=== PATIENT | male | born 1935 | race Hispanic/Latino ===

== ENCOUNTER → 2018-04-29 | Outpatient (CLI) | payer OTHER | END | disposition home or self-care (01) | LOC: SHCH 10:16 | PROVIDERS: ATTEND Internal Medicine Cardiovascular Disease | DX: R01.1 Cardiac murmur, unspecified (principal); Z79.01 Long term (current) use of anticoagulants | CPT/HCPCS: 93880 ==

== ENCOUNTER → 2018-05-02 | Outpatient (CLI) | payer OTHER | END | disposition home or self-care (01) | LOC: SHCH 13:52 | PROVIDERS: ATTEND Internal Medicine Cardiovascular Disease | DX: I34.0 Nonrheumatic mitral (valve) insufficiency (principal); I10 Essential (primary) hypertension; I25.10 Atherosclerotic heart disease of native coronary artery without angina pectoris | CPT/HCPCS: 93306 ==

== ENCOUNTER → 2018-05-27 | Outpatient (CLI) | payer OTHER ==
[2018-05-27 14:20] LABS: CREATININE 1.3 mg/dL (0.5-1.5)
== END | disposition home or self-care (01) ==
LOC: LAB 13:30
PROVIDERS: ATTEND Internal Medicine Cardiovascular Disease
DX: I65.23 Occlusion and stenosis of bilateral carotid arteries (principal)
CPT/HCPCS: 36415; 82565; 84520

== ENCOUNTER → 2018-05-29 | Outpatient (CLI) | payer OTHER ==
[~2018-05-29] MED LIST: IOHEXOL-350 50ML VIAL IV ONE
== END | disposition home or self-care (01) ==
LOC: OIH 08:02
PROVIDERS: ATTEND Internal Medicine Cardiovascular Disease
DX: I65.23 Occlusion and stenosis of bilateral carotid arteries (principal); I70.90 Unspecified atherosclerosis
CPT/HCPCS: 70498; Q9967

== ENCOUNTER 2018-08-16 09:44 | Day surgery (SDC) | payer OTHER ==
[2018-08-14 09:30] LABS: EOSINOPHILS % (AUTO) 6.8 % (0.0-8.0); HEMATOCRIT 43.8 % (42-54); LYMPHOCYTES % (AUTO) 21.1 % (21.0-51.0); MEAN CORPUSCULAR HEMOGLOBIN 33.2 pg (27.0-33.0); MEAN CORPUSCULAR HGB CONC 33.6 g/dL (32.0-36.0); MEAN CORPUSCULAR VOLUME 99.1 fL (79-99); MONOCYTES % (AUTO) 9.7 % (3.0-13.0); NEUTROPHILS % (AUTO) 61.4 % (40.0-77.0); PLATELET COUNT (AUTO) 153 K/uL (130-400); RED BLOOD CELL COUNT(AUTO) 4.42 MIL/uL (4.50-6.20); RED CELL DISTRIBUTION WIDTH 14.8 % (11.0-15.5); WHITE BLOOD COUNT (AUTO) 8.5 K/uL (4.8-10.8)
[2018-08-14 09:34] VITALS: BP 91/51
[2018-08-14 09:35] LABS: APPEARANCE,URINE Clear (CLEAR); BILIRUBIN,URINE Negative (NEGATIVE); COLOR,URINE Yellow (YELLOW); GLUCOSE, URINE (UA) Negative (NEGATIVE); KETONES,URINE Trace mg/dL (NEGATIVE); LEUKOCYTE ESTERASE ,URINE Negative (NEGATIVE); NITRATE,URINE Negative (NEGATIVE); OCCULT BLOOD,URINE Negative (NEGATIVE); PH,URINE 5.5 (5.0-8.0); PROTEIN,URINE Negative (NEGATIVE)
[2018-08-14 09:38] LABS: CREATININE 1.5 mg/dL (0.5-1.5); POTASSIUM 3.9 mmol/L (3.5-5.1)
[2018-08-14 10:13] LABS: INR 1.04 (0.85-1.15); PROTHROMBIN TIME 10.9 SEC (9.6-11.6)
[2018-08-14 10:18] LABS: BACTERIA,URINE Rare /HPF (None Seen); RBC,URINE 0-1 /HPF (0-1); SQUAMOUS EPITHELIAL CELL,UR Rare /HPF (0-2)
--- NOTE | 2018-08-15 10:36 | NUR ---
ABNORMAL LABS REPORTED CREATININE 1.5 TO SHERICE PATEL. ORDERS TO GIVE NS AT 100 ML/HR UNTIL PT GOES TO PROCEDURE. AND PER KWAN, TO BRING PT IN AT 1000 DAY OF PROCEDURE.
[~2018-08-16] VITALS: Ht 165.1 cm; Wt 73.1 kg
[2018-08-16] VITALS (13 sets, daily range): BP systolic 102–121; BP diastolic 44–57
[~2018-08-16 09:44] MED LIST changes: +APIX2.5T PO; +ATOR20TA65 PO; +CARV6.25 PO; +DIGO125T17 PO; +FURO20TA4 PO; -IOHEXOL-350 50ML VIAL IV ONE; +LISI2.5T2 PO; +SODIUM CHLORIDE 0.9% 500ML 500 ML IV SCH
--- NOTE | 2018-08-16 09:56 | NUR ---
Pt admit to day room 7 Pt admit ambulatory to day room 7. Pt aware of planned procedure. Allergies verified. Assessment completed. Pt aware of hydration status due to creatine of 1.5. All questions answered. No distress noted. will continue to monitor.
[2018-08-16] MEDS ORDERED: SODIUM CHLORIDE 0.9% 1000ML 1,000 ML IV SCH ×2 (10:00→14:47)
[2018-08-16] MEDS ORDERED: LIDOCAINE HCL-MPF 2% 5ML VIAL ONE (13:31)
[2018-08-16] MEDS ORDERED: IODIXANOL 320 MG/ML 100 ML VIAL ONE (13:31)
[2018-08-16] MEDS ORDERED: NITROGLYCERIN 5 MG/ML 10 ML VIAL IV ONE (13:31)
[2018-08-16] MEDS ORDERED: SODIUM BICARB 50MEQ 50ML VIAL ONE (13:31)
--- NOTE | 2018-08-16 13:40 | NUR ---
PT in route to [employer] Pt aware of planned procedure. Pt in route with [facility]asma DAHL to [employer]
--- NOTE | 2018-08-16 15:03 | NUR ---
pt s/p cardiac cath lab manager Pt returned s/p cardiac cath lab manager to day room 7. PT AAOX3, perclose to right groin, dressing dry and intact. Family at bedside. Assessment completed. No distress noted. Will continue to monitor.
--- NOTE | 2018-08-16 19:16 | NUR ---
DC Home PT continues AAOX3, perclose to right groin continues dry and intact. Discharge instructions given to pt, spouse and family. Aware of f/u appt with MD Smith 09/02/18. Pt and spouse aware of Eliquis is to be continued tomorrow in evening on 08/17/18. All questions answered. Dc via wheelchair.
== END 2018-08-16 19:16 | disposition home or self-care (01) ==
LOC: DAH 09:44
PROVIDERS: ATTEND Internal Medicine Cardiovascular Disease
DX: I65.23 Occlusion and stenosis of bilateral carotid arteries (principal); I25.10 Atherosclerotic heart disease of native coronary artery without angina pectoris; Z95.1 Presence of aortocoronary bypass graft; Z79.899 Other long term (current) drug therapy; I10 Essential (primary) hypertension; E78.5 Hyperlipidemia, unspecified; I48.0 Paroxysmal atrial fibrillation; Z79.01 Long term (current) use of anticoagulants; I25.5 Ischemic cardiomyopathy; I73.9 Peripheral vascular disease, unspecified
CPT/HCPCS: 36223; 36415; 71045; 80048; 81001; 85025; 85610; 85730; 93005; A4606; C1760; C1894; J1644; J3490 ×3; Q9967

== ENCOUNTER 2018-10-07 10:00 | Inpatient (IN) | payer OTHER ==
[~2018-10-07] VITALS: Ht 172.7 cm; Wt 75.7 kg
[~2018-10-07 10:00] MED LIST changes: -DIGO125T17 PO; -SODIUM CHLORIDE 0.9% 500ML 500 ML IV SCH
[2018-10-07 11:47] VITALS: BP 103/54
[2018-10-07 11:52] LABS: EOSINOPHILS % (AUTO) 8.6 % (0.0-8.0); HEMATOCRIT 42.5 % (42-54); MEAN CORPUSCULAR HEMOGLOBIN 32.3 pg (27.0-33.0); MEAN CORPUSCULAR VOLUME 97.8 fL (79-99); NEUTROPHILS % (AUTO) 61.4 % (40.0-77.0); PLATELET COUNT (AUTO) 161 K/uL (130-400); RED BLOOD CELL COUNT(AUTO) 4.35 MIL/uL (4.50-6.20); RED CELL DISTRIBUTION WIDTH 14.3 % (11.0-15.5); WHITE BLOOD COUNT (AUTO) 9.5 K/uL (4.8-10.8)
[2018-10-07 11:53] LABS: APPEARANCE,URINE CLEAR (CLEAR); BILIRUBIN,URINE NEGATIVE (NEGATIVE); COLOR,URINE YELLOW (YELLOW); GLUCOSE, URINE (UA) NEGATIVE (NEGATIVE); KETONES,URINE NEGATIVE (NEGATIVE); LEUKOCYTE ESTERASE ,URINE NEGATIVE (NEGATIVE); NITRATE,URINE NEGATIVE (NEGATIVE); OCCULT BLOOD,URINE NEGATIVE (NEGATIVE); PROTEIN,URINE NEGATIVE (NEGATIVE)
[2018-10-07 12:06] LABS: CREATININE 1.4 mg/dL (0.5-1.5); INR 1.04 (0.85-1.15); PARTIAL THROMBOPLASTIN TIME 29.9 SEC (26.3-35.5); PROTHROMBIN TIME 10.9 SEC (9.6-11.6)
[2018-10-07] MEDS ORDERED: DIGOXIN PO (12:54)
[2018-10-07] MEDS ORDERED: CLOP75TA32 PO (12:55)
--- NOTE | 2018-10-08 12:05 | NUR ---
Cr 1.[address] Isael Smith, no new orders
[2018-10-09] VITALS (21 sets, daily range): BP systolic 112–166; BP diastolic 43–112
[2018-10-09] MEDS ORDERED: LIDOCAINE HCL 1% 10 ML VIAL ONE (06:27)
[2018-10-09] MEDS ORDERED: PROPOFOL 10 MG/ML 20ML VIAL IV ONE ×2 (06:27→06:30)
[2018-10-09] MEDS ORDERED: LIDOCAINE PF 2% 5ML ABBOJECT ONE (06:27)
[2018-10-09] MEDS ORDERED: FENTANYL CITRATE PF 50 MCG/1 ML 2ML VIAL ONE ×2 (06:28→07:54)
[2018-10-09] MEDS ORDERED: ROCURONIUM 10MG/1ML SYR 10 MG/ML ML ONE (06:28)
[2018-10-09] MEDS ORDERED: GLYCOPYRROLATE 1 MG/5 ML SYRINGE ONE (06:28)
[2018-10-09] MEDS ORDERED: NEOSTIGMINE 5MG/5ML SYR IV ONE (06:28)
[2018-10-09] MEDS ORDERED: NICARDIPINE HCL 25 MG/10 ML ML IV ONE (06:30)
[2018-10-09] MEDS ORDERED: NOREPINEPHRINE BITARTRATE 1 MG/1 ML ML IV ONE (06:30)
[2018-10-09] MEDS ORDERED: PHENYLEPHRINE HCL 10 MG/ML 1ML VIAL IV ONE (06:37)
[2018-10-09] MEDS ORDERED: SODIUM CHLORIDE 0.9% 1000ML 1,000 ML IV ONE (06:44)
[2018-10-09] MEDS ORDERED: SODIUM BICARB 50MEQ 50ML VIAL ONE (07:13)
[2018-10-09] MEDS ORDERED: ATROPINE SULFATE 0.1 MG/ML 10 ML SYG IVP ONE (07:13)
[2018-10-09] MEDS ORDERED: HEPARIN SODIUM 1000UNIT/ML 10ML VIAL ONE ×2 (07:14→08:00)
[2018-10-09] MEDS ORDERED: LIDOCAINE HCL 2% 20ML ONE (07:14)
[2018-10-09] MEDS ORDERED: IODIXANOL 320 MG/ML 100 ML VIAL ONE (07:14)
[2018-10-09] MEDS ORDERED: NITROGLYCERIN 5 MG/ML 10 ML VIAL IV ONE (07:14)
[2018-10-09] MEDS ORDERED: CEFAZOLIN SODIUM 1 GM VIAL ONE ×2 (07:36→07:37)
[2018-10-09] MEDS ORDERED: BACITRACIN 50,000 UNIT VIAL ONE (07:54)
[2018-10-09] MEDS ORDERED: ROCURONIUM BROMIDE 10MG/1ML 5ML VL ONE (07:54)
[2018-10-09] MEDS ORDERED: ONDANSETRON HCL 4 MG/2 ML VIAL IVP PRN (09:15)
[2018-10-09] MEDS ORDERED: SODIUM CHLORIDE 0.9% 1000ML 1,000 ML IV SCH (09:15)
[2018-10-09] MEDS ORDERED: NOREPINEPHRINE 4MG/NS 250ML 250 ML IV PRN (09:15)
[2018-10-09] MEDS ORDERED: TEMAZEPAM 30 MG CAP PO PRN (09:15)
[2018-10-09] MEDS ORDERED: ACETAMINOPHEN-CODEINE 300/30MG TAB PO PRN (09:15)
[2018-10-09] MEDS ORDERED: LABETALOL HCL 5 MG/ML 20ML VIAL IV PRN (09:15)
[2018-10-09] MEDS: ACETAMINOPHEN-CODEINE 300/30MG TAB PO PRN ×2 (11:30→23:20)
--- NOTE | 2018-10-09 15:00 | NUR ---
PT WAS TRANSFERRED TO ROOM 218 FROM 211. PT IS AWAKE ALERT AND ORIENTED AND OFFERING N/C AT PRESENT. PT STATES THAT HE WOULD LIKE TO SIT UP TO VOID AND HAS BEEN ADVISED THAT HE IS UNABLE TO TO SIT FOR NOW.
--- NOTE | 2018-10-09 18:07 | NUR ---
PT'S HOB ELEVATED AND TOLERATED WITHOUT ANY PROBLEMS. REMAINS AT BEDSIDE.
[2018-10-10] VITALS (27 sets, daily range): BP systolic 76–191; BP diastolic 37–163
[2018-10-10 03:38] LABS: HEMATOCRIT 37.6 % (42-54); MEAN CORPUSCULAR HEMOGLOBIN 32.9 pg (27.0-33.0); MEAN CORPUSCULAR HGB CONC 33.9 g/dL (32.0-36.0); MEAN CORPUSCULAR VOLUME 97.1 fL (79-99); NUCLEATED RED BLOOD CELLS 0.1 % (0.0-0.19); PLATELET COUNT (AUTO) 135 K/uL (130-400); RED BLOOD CELL COUNT(AUTO) 3.87 MIL/uL (4.50-6.20); RED CELL DISTRIBUTION WIDTH 14.2 % (11.0-15.5); WHITE BLOOD COUNT (AUTO) 11.1 K/uL (4.8-10.8)
[2018-10-10 04:11] LABS: CREATININE 1.1 mg/dL (0.5-1.5); POTASSIUM 3.6 mmol/L (3.5-5.1)
[2018-10-10] MEDS ORDERED: APIXABAN 2.5 MG TABLET PO SCH (09:00)
--- NOTE | 2018-10-10 11:30 | NUR ---
DR. LIM WAS PAGED AND ADVISED OF PT'S LOW BLOOD PRESSURE AND UNABLE TO WEAN OFF THE LEVOPHED. ORDERS NOTED AND PATIENT AND ADVISED OF PT'S ORDERS. PT IS CONCERNED AND WILL AMBULATE PT SOON BLOOD PRESSURE IS STABLE.
[2018-10-10] MEDS ORDERED: MIDODRINE HCL 5 MG TABLET ONE (11:44)
[2018-10-10] MEDS ORDERED: SODIUM CHLORIDE 0.9% 1000ML 1,000 ML IV ONE (11:45)
[2018-10-10] MEDS ORDERED: MIDODRINE HCL 5 MG TABLET PO SCH (11:45)
[2018-10-10] MEDS ORDERED: SODIUM CHLORIDE 0.9% 1000ML 1,000 ML IV SCH (11:45)
--- NOTE | 2018-10-10 14:55 | NUR ---
DC PLAN VISITED WITH PATIENT. PATIENT LIVES WITH SPOUSE. INDEPENDENT ABLE TO PERFORM ADL'S. PATIENT HAS NO SERVICES OR DME'S. FEELS SAFE TO RETURN HOME. Addendum: 10/10/18 at 1457 by MARTA LEACH RN CM Amended: Links added.
--- NOTE | 2018-10-10 15:43 | NUR ---
DIRECTIVES Sw met with pt and Aminata and completed Directives and [employer] forms. Forms signed and witnessed, copy on chart. given original.
--- NOTE | 2018-10-10 15:55 | NUR ---
PT WAS DISCHARGED AND TAKEN BY W/C TO PRIVATE VEHICLE. PT HAS BEEN MONITORED FOR B/P AND AFTER IV FLUIDS WERE GIVEN FOR 4 HOURS AT 50 CC/HR.
== END 2018-10-10 15:55 | disposition home or self-care (01) | DRG 38 ==
LOC: EDSTATUS 10:00 → INTOOBSV 10-09 05:30 → OBSVTOIN 10-09 05:30 → DAHIP 10-09 05:30 → 2CV 10-09 10:02 → 2CH 10-09 15:03
PROVIDERS: ADMIT Internal Medicine; ATTEND Internal Medicine
PROC: B3131ZZ Fluoroscopy of Right Common Carotid Artery using Low Osmolar Contrast (ICD-10-PCS; 2018-10-09)
PROC: 037K34Z Dilation of Right Internal Carotid Artery with Drug-eluting Intraluminal Device, Percutaneous Approach (ICD-10-PCS; principal; 2018-10-09 08:00)
DX: I65.23 Occlusion and stenosis of bilateral carotid arteries (principal); D68.59 Other primary thrombophilia; I25.10 Atherosclerotic heart disease of native coronary artery without angina pectoris; I25.5 Ischemic cardiomyopathy; I10 Essential (primary) hypertension; E78.5 Hyperlipidemia, unspecified; I35.8 Other nonrheumatic aortic valve disorders; I48.0 Paroxysmal atrial fibrillation; I25.2 Old myocardial infarction; Z79.01 Long term (current) use of anticoagulants; Z95.1 Presence of aortocoronary bypass graft; Z95.810 Presence of automatic (implantable) cardiac defibrillator
CPT/HCPCS: 36415; 37215; 71045; 80048; 80061; 80162; 81003; 85025; 85027; 85610; 85730; 86850; 86900; 86901; 86922; 93005; C1725; G0378; J0461; J0690; J1644; J2001; J2370; J2405; J2704; J2710; J3010; J3490; J7030; Q9967

== ENCOUNTER → 2019-03-12 | Outpatient (CLI) | payer OTHER ==
[~2019-03-12] MED LIST changes: +CLOP75TA32 PO; +DIGOXIN PO
== END | disposition home or self-care (01) ==
LOC: SHCH 08:37
PROVIDERS: ATTEND Internal Medicine Cardiovascular Disease
DX: I65.23 Occlusion and stenosis of bilateral carotid arteries (principal)
CPT/HCPCS: 93880

== ENCOUNTER → 2019-10-29 | Outpatient (CLI) | payer OTHER ==
[~2019-10-29] MED LIST changes: +NITR0.4T SL
== END | disposition home or self-care (01) ==
LOC: SHCH 10:39
PROVIDERS: ATTEND Internal Medicine Cardiovascular Disease
DX: I25.5 Ischemic cardiomyopathy (principal)
CPT/HCPCS: 93306; 93925

== ENCOUNTER → 2019-11-20 | Outpatient (CLI) | payer OTHER ==
[~2019-11-20] MED LIST changes: +IOHEXOL-350 50ML VIAL IV ONE; +IOHEXOL-350 75 ML VIAL IV ONE; -NITR0.4T SL
== END | disposition home or self-care (01) ==
LOC: RAH 08:26
PROVIDERS: ATTEND Internal Medicine Cardiovascular Disease
DX: I70.209 Unspecified atherosclerosis of native arteries of extremities, unspecified extremity (principal)
CPT/HCPCS: 75635; Q9967 ×2

== ENCOUNTER 2019-12-16 10:47 | Observation (INO) | payer OTHER ==
[2019-12-12 10:21] LABS: APPEARANCE,URINE Clear (CLEAR); BILIRUBIN,URINE Negative (NEGATIVE); COLOR,URINE Yellow (YELLOW); EOSINOPHILS % (AUTO) 6.6 % (0.0-8.0); GLUCOSE, URINE (UA) Negative (NEGATIVE); HEMATOCRIT 43.3 % (42-54); KETONES,URINE Trace mg/dL (NEGATIVE); LEUKOCYTE ESTERASE ,URINE Negative (NEGATIVE); MEAN CORPUSCULAR HEMOGLOBIN 32.6 pg (27.0-33.0); MEAN CORPUSCULAR HGB CONC 33.3 g/dL (32.0-36.0); MONOCYTES % (AUTO) 8.4 % (3.0-13.0); NEUTROPHILS % (AUTO) 67.6 % (40.0-77.0); NITRATE,URINE Negative (NEGATIVE); OCCULT BLOOD,URINE Negative (NEGATIVE); PH,URINE 5.5 (5.0-8.0); PLATELET COUNT (AUTO) 189 K/uL (130-400); PROTEIN,URINE Negative (NEGATIVE); RED BLOOD CELL COUNT(AUTO) 4.42 MIL/uL (4.50-6.20); RED CELL DISTRIBUTION WIDTH 15.1 % (11.0-15.5); WHITE BLOOD COUNT (AUTO) 11.3 K/uL (4.8-10.8)
[2019-12-12 10:24] LABS: BACTERIA,URINE Rare /HPF (None Seen); RBC,URINE 0-1 /HPF (0-1); SQUAMOUS EPITHELIAL CELL,UR Rare /HPF (0-2); WBC,URINE 0-1 /HPF (0-1)
[2019-12-12 10:36] LABS: CREATININE 1.5 mg/dL (0.5-1.5); POTASSIUM 3.9 mmol/L (3.5-5.1)
[2019-12-12 10:41] LABS: INR 1.07 (0.85-1.15); PARTIAL THROMBOPLASTIN TIME 30.7 SEC (26.3-35.5); PROTHROMBIN TIME 11.5 SEC (9.6-11.6)
[2019-12-12 12:48] VITALS: BP 95/46
--- NOTE | 2019-12-15 12:54 | NUR ---
labs abnormal crea, and wbc reported to minh nelson, further orders given and will be carried out
[2019-12-15] MEDS: SODIUM CHLORIDE 0.9% 1000ML 1,000 ML IV SCH (13:15)
--- NOTE | 2019-12-15 13:21 | NUR ---
holley SMILEY notified that patient took eliquis this am, he stated for patient to hold immediately , continue with scheduled procedure
[~2019-12-16] VITALS: Ht 170.2 cm; Wt 67.4 kg
[2019-12-16] VITALS (10 sets, daily range): BP systolic 97–134; BP diastolic 50–80
[~2019-12-16 10:47] MED LIST changes: -IOHEXOL-350 50ML VIAL IV ONE; -IOHEXOL-350 75 ML VIAL IV ONE; +NITR0.4T SL
[2019-12-16] MEDS ORDERED: SODIUM BICARB 50MEQ 50ML VIAL ONE (14:34)
[2019-12-16] MEDS ORDERED: LIDOCAINE HCL 2% 20ML ONE (14:34)
[2019-12-16] MEDS ORDERED: IODIXANOL 320 MG/ML 100 ML VIAL ONE (14:34)
[2019-12-16] MEDS ORDERED: HEPARIN SODIUM 1000UNIT/ML 10ML VIAL ONE (14:34)
[2019-12-16] MEDS ORDERED: IOHEXOL-350 50ML VIAL IV ONE (15:01)
[2019-12-16] MEDS ORDERED: NITROGLYCERIN 2 MG/VIAL VIAL IV ONE (15:18)
[2019-12-16] MEDS ORDERED: MEPERIDINE-PF 25 MG/ML SYG ONE ×2 (15:57→16:21)
[2019-12-16] MEDS ORDERED: ASPIRIN 81MG TAB.CHEW ONE (16:59)
[2019-12-16] MEDS ORDERED: SODIUM CHLORIDE 0.9% 1000ML 1,000 ML IV SCH (17:02)
[2019-12-16] MEDS ORDERED: NITROGLYCERIN 0.4 MG SL TAB SL PRN (17:15)
[2019-12-16] MEDS: SODIUM CHLORIDE 0.9% 1000ML 1,000 ML IV SCH (18:31)
[2019-12-16] MEDS: CARVEDILOL 6.25 MG TABLET PO SCH (20:16)
[2019-12-16] MEDS ORDERED: ATORVASTATIN CALCIUM 20 MG TABLET PO SCH (21:00)
--- NOTE | 2019-12-16 23:34 | NUR ---
PERIPHERAL PULSES LEFT DORSALIS PEDIS PALPABLE/ AUDIBLE WITH DOPPLER, EXTREMITY WARM TO TOUCH. RIGHT DORSALIS PEDIS NOT PALPABLE/AUDIBLE WITH DOPPLER. POSTERIOR TIBIALIS, POPLITEAL AUDIBLE WITH DOPPLER. EXTREMITY COOL TO TOUCH.
[2019-12-17] VITALS: BP 100/50
[2019-12-17 04:00] VITALS: BP 90/52
[2019-12-17 04:38] LABS: HEMATOCRIT 39.3 % (42-54); MEAN CORPUSCULAR HEMOGLOBIN 32.4 pg (27.0-33.0); MEAN CORPUSCULAR HGB CONC 33.8 g/dL (32.0-36.0); MEAN CORPUSCULAR VOLUME 95.6 fL (79-99); RED BLOOD CELL COUNT(AUTO) 4.11 MIL/uL (4.50-6.20); RED CELL DISTRIBUTION WIDTH 14.6 % (11.0-15.5); WHITE BLOOD COUNT (AUTO) 12.3 K/uL (4.8-10.8)
[2019-12-17 05:03] LABS: CREATININE 1.5 mg/dL (0.5-1.5); POTASSIUM 3.6 mmol/L (3.5-5.1)
[2019-12-17] MEDS: SODIUM CHLORIDE 0.9% 1000ML 1,000 ML IV SCH (05:15)
[2019-12-17 05:46] LABS: DIGOXIN 0.51 ng/mL (0.50-2.00)
[2019-12-17 08:00] VITALS: BP 112/59
[2019-12-17] MEDS: CARVEDILOL 6.25 MG TABLET PO SCH (08:32)
[2019-12-17] MEDS ORDERED: LISINOPRIL 2.5 MG TABLET PO SCH (09:00)
[2019-12-17] MEDS ORDERED: CLOPIDOGREL BISULFATE 75 MG TAB PO SCH (09:00)
[2019-12-17] MEDS ORDERED: FUROSEMIDE 20 MG TABLET PO SCH (09:00)
[2019-12-17 11:23] VITALS: BP 110/66
--- NOTE | 2019-12-17 15:48 | NUR ---
DISCHARGE INSTRUCTIONS GIVEN TO PATIENT AND AT THE BEDSIDE. MADE AWARE OF FOLLOW UP APPOINTMENT WITH DR. LIM. AWARE TO FOLLOW UP WITH PCP IN 2-3 DAYS. INSTRUCTED TO HOLD ELIQUIS FOR TODAY AND TO RESUME TOMORROW WELL ALL OTHER HOME MEDICATIONS. DRESSING TO RIGHT GROIN DRY AND INTACT. NO BLEEDING NOTED, INSTRUCTED ON AFTER CARE. PATIENT AT THIS TIME DENIES ANY PAIN, NO SIGNS AND SYMPTOMS OF ACUTE DISTRESS NOTED. PULSES PRESENT TO BLE WITH DOPPLER. PATIENT WILL BE TAKEN HOME BY HIS
--- NOTE | 2019-12-17 15:58 | NUR ---
1433 patient signed [facility] Letter, I faxed [facility] Letter to [phone] and placed in chart under consent tab.
[2019-12-17] MEDS ORDERED: DIGOXIN 125 MCG TABLET PO SCH (16:00)
== END 2019-12-17 16:00 | disposition home or self-care (01) ==
LOC: DAH 10:47 → EDHIP 20:20 → 4BH 20:29
PROVIDERS: ADMIT Internal Medicine Pulmonary Disease; ATTEND Internal Medicine Pulmonary Disease
DX: I70.212 Atherosclerosis of native arteries of extremities with intermittent claudication, left leg (principal); I77.1 Stricture of artery; L97.529 Non-pressure chronic ulcer of other part of left foot with unspecified severity; I25.2 Old myocardial infarction; E78.5 Hyperlipidemia, unspecified; I48.0 Paroxysmal atrial fibrillation; I25.810 Atherosclerosis of coronary artery bypass graft(s) without angina pectoris; I11.0 Hypertensive heart disease with heart failure; I99.8 Other disorder of circulatory system; I50.42 Chronic combined systolic (congestive) and diastolic (congestive) heart failure; Z79.899 Other long term (current) drug therapy; Z79.01 Long term (current) use of anticoagulants; Z79.02 Long term (current) use of antithrombotics/antiplatelets; Z95.1 Presence of aortocoronary bypass graft; Z98.890 Other specified postprocedural states
CPT/HCPCS: 36415 ×3; 37224; 37228; 37232; 71045; 75710; 80048 ×2; 80162; 81001; 85025; 85027; 85347; 85610; 85730; 93005; 96360; A4215; A4216; A4221; A4222; A4223 ×3; A4606; A4663; C1725 ×2; C1760; C1769 ×4; C1893; C1894; C2623; G0378 ×5; J1644 ×2; J2175 ×2; J3490 ×3; J7030; Q9967 ×2; 99156; 99157

== ENCOUNTER 2020-08-06 05:45 | Day surgery (SDC) | payer OTHER ==
[2020-08-04 09:12] LABS: EOSINOPHILS % (AUTO) 8.3 % (0.0-8.0); HEMATOCRIT 44.9 % (42-54); LYMPHOCYTES % (AUTO) 15.9 % (21.0-51.0); MEAN CORPUSCULAR HEMOGLOBIN 31.9 pg (27.0-33.0); MEAN CORPUSCULAR HGB CONC 33.2 g/dL (32.0-36.0); MEAN CORPUSCULAR VOLUME 96.1 fL (79-99); MONOCYTES % (AUTO) 9.9 % (3.0-13.0); NEUTROPHILS % (AUTO) 64.4 % (40.0-77.0); PLATELET COUNT (AUTO) 191 K/uL (130-400); RED BLOOD CELL COUNT(AUTO) 4.67 MIL/uL (4.50-6.20); RED CELL DISTRIBUTION WIDTH 14.9 % (11.0-15.5); WHITE BLOOD COUNT (AUTO) 10.3 K/uL (4.8-10.8)
[2020-08-04 09:13] LABS: APPEARANCE,URINE Clear (CLEAR); BILIRUBIN,URINE Negative (NEGATIVE); COLOR,URINE Yellow (YELLOW); GLUCOSE, URINE (UA) Negative (NEGATIVE); KETONES,URINE Negative (NEGATIVE); LEUKOCYTE ESTERASE ,URINE Negative (NEGATIVE); NITRATE,URINE Negative (NEGATIVE); OCCULT BLOOD,URINE Negative (NEGATIVE); PROTEIN,URINE Negative (NEGATIVE)
[2020-08-04 09:18] LABS: CREATININE 1.7 mg/dL (0.5-1.5); POTASSIUM 4.2 mmol/L (3.5-5.1)
[2020-08-04 09:21] LABS: INR 1.1 (0.85-1.15); PROTHROMBIN TIME 11.9 SEC (9.6-11.6)
[2020-08-04 09:22] LABS: PARTIAL THROMBOPLASTIN TIME 30.7 SEC (26.3-35.5)
[2020-08-04 11:43] VITALS: BP 94/43
[~2020-08-06] VITALS: Ht 177.8 cm; Wt 72.9 kg
[2020-08-06] VITALS (12 sets, daily range): BP systolic 83–120; BP diastolic 49–58
[~2020-08-06 05:45] MED LIST changes: +ACETAMINOPHEN 325 MG TAB PO PRN; -CLOP75TA32 PO; +SODIUM CHLORIDE 0.9% 500ML 500 ML IV SCH
[2020-08-06] MEDS ORDERED: SODIUM CHLORIDE 0.9% 1000ML 1,000 ML IV SCH ×2 (07:00→11:45)
[2020-08-06] MEDS ORDERED: HEPARIN SODIUM 1000UNIT/ML 10ML VIAL ONE (08:11)
[2020-08-06] MEDS ORDERED: SODIUM BICARB 50MEQ 50ML VIAL 50 ML ONE (08:11)
[2020-08-06] MEDS ORDERED: NITROGLYCERIN 2 MG/VIAL VIAL IV ONE (08:11)
[2020-08-06] MEDS ORDERED: IODIXANOL 320 MG/ML 100 ML VIAL ONE (08:11)
[2020-08-06] MEDS ORDERED: MEPERIDINE-PF 25 MG/ML SYG ONE (08:12)
[2020-08-06] MEDS ORDERED: LIDOCAINE HCL 2% 20ML ONE (08:12)
[2020-08-06] MEDS ORDERED: MIDAZOLAM HCL 1 MG/ML 2ML VIAL ONE (08:12)
== END 2020-08-06 17:00 | disposition home or self-care (01) ==
LOC: DAH 05:45
PROVIDERS: ATTEND Internal Medicine Cardiovascular Disease
DX: I70.213 Atherosclerosis of native arteries of extremities with intermittent claudication, bilateral legs (principal); I13.0 Hypertensive heart and chronic kidney disease with heart failure and stage 1 through stage 4 chronic kidney disease, or unspecified chronic kidney disease; N18.9 Chronic kidney disease, unspecified; I50.42 Chronic combined systolic (congestive) and diastolic (congestive) heart failure; I25.10 Atherosclerotic heart disease of native coronary artery without angina pectoris; I25.2 Old myocardial infarction; I25.5 Ischemic cardiomyopathy; E78.5 Hyperlipidemia, unspecified; I48.0 Paroxysmal atrial fibrillation; Z95.5 Presence of coronary angioplasty implant and graft; Z95.1 Presence of aortocoronary bypass graft; Z98.890 Other specified postprocedural states; Z79.01 Long term (current) use of anticoagulants; Z79.899 Other long term (current) drug therapy
CPT/HCPCS: 36246; 36415; 71045; 75716; 80048; 81003; 85025; 85610; 85730; 93005; A4215; A4216; A4221; A4222; A4223 ×3; A4606; A4663; A6260; C1760; C1769; C1894; J1644 ×2; J2175; J2250; J3490 ×3; J7030 ×2; Q9967; 36247; 99156; 99157

== ENCOUNTER → 2020-10-07 | Outpatient (CLI) | payer OTHER ==
[~2020-10-07] MED LIST changes: -ACETAMINOPHEN 325 MG TAB PO PRN; -SODIUM CHLORIDE 0.9% 500ML 500 ML IV SCH
== END | disposition home or self-care (01) ==
LOC: SHCH 09:48
PROVIDERS: ATTEND Internal Medicine Cardiovascular Disease
DX: I65.23 Occlusion and stenosis of bilateral carotid arteries (principal)
CPT/HCPCS: 93880

== ENCOUNTER 2021-05-04 05:50 | Day surgery (SDC) | payer OTHER ==
[2021-05-02 09:58] LABS: EOSINOPHILS % (AUTO) 7.4 % (0.0-8.0); HEMATOCRIT 42.4 % (42-54); LYMPHOCYTES % (AUTO) 16.5 % (21.0-51.0); MEAN CORPUSCULAR HGB CONC 32.8 g/dL (32.0-36.0); MEAN CORPUSCULAR VOLUME 97.7 fL (79-99); MONOCYTES % (AUTO) 8.7 % (3.0-13.0); NEUTROPHILS % (AUTO) 65.9 % (40.0-77.0); PLATELET COUNT (AUTO) 218 K/uL (130-400); RED BLOOD CELL COUNT(AUTO) 4.34 MIL/uL (4.50-6.20); RED CELL DISTRIBUTION WIDTH 15.2 % (11.0-15.5); WHITE BLOOD COUNT (AUTO) 11.4 K/uL (4.8-10.8)
[2021-05-02 10:09] LABS: CREATININE 1.6 mg/dL (0.5-1.5); POTASSIUM 3.9 mmol/L (3.5-5.1)
[2021-05-02 10:11] LABS: INR 1.07 (0.85-1.15); PROTHROMBIN TIME 11.6 SEC (9.6-11.6)
[2021-05-02 10:12] LABS: PARTIAL THROMBOPLASTIN TIME 31.2 SEC (26.3-35.5)
[2021-05-03 13:05] VITALS: BP 111/51
[2021-05-04] VITALS (10 sets, daily range): BP systolic 97–119; BP diastolic 41–61
[~2021-05-04] VITALS: Ht 177.8 cm; Wt 72.7 kg
[~2021-05-04 05:50] MED LIST changes: +CILO100T PO; +CLOP75TA32 PO; +DIGO125T71 PO; -DIGOXIN PO; +LISI2.5T13 PO; -LISI2.5T2 PO; +MVIT PO
[2021-05-04] MEDS ORDERED: 0.9%NACL 1000ML 1,000 ML IV ONE (06:12)
[2021-05-04] MEDS ORDERED: BUPIVACAINE/PF 0.25% 30ML VIAL IJ ONE (07:25)
[2021-05-04] MEDS ORDERED: CEFAZOLIN SODIUM 1 GM VIAL ONE (07:25)
[2021-05-04] MEDS ORDERED: MIDAZOLAM HCL 1 MG/ML 2ML VIAL ONE ×2 (07:25→07:40)
[2021-05-04] MEDS ORDERED: LIDOCAINE HCL 1% MDV 50ML VIAL ONE (07:25)
[2021-05-04] MEDS ORDERED: MEPERIDINE-PF 25 MG/ML SYG ONE ×2 (07:25→07:40)
[2021-05-04] MEDS ORDERED: THROMBIN-JMI 5000 UNIT/VIAL TP ONE (07:58)
[2021-05-04] MEDS ORDERED: ACETAMINOPHEN 325 MG TAB PO PRN ×2 (09:00)
[2021-05-04] MEDS ORDERED: CEFAZOLIN SODIUM 1 GM VIAL IVP SCH (13:30)
== END 2021-05-04 14:10 | disposition home or self-care (01) ==
LOC: DAH 05:50
PROVIDERS: ATTEND Internal Medicine Cardiovascular Disease
DX: Z45.02 Encounter for adjustment and management of automatic implantable cardiac defibrillator (principal); I25.5 Ischemic cardiomyopathy; I11.0 Hypertensive heart disease with heart failure; I50.42 Chronic combined systolic (congestive) and diastolic (congestive) heart failure; I25.10 Atherosclerotic heart disease of native coronary artery without angina pectoris; E78.5 Hyperlipidemia, unspecified; I48.21 Permanent atrial fibrillation; I73.9 Peripheral vascular disease, unspecified; Z98.890 Other specified postprocedural states; Z79.01 Long term (current) use of anticoagulants; Z95.1 Presence of aortocoronary bypass graft
CPT/HCPCS: 33264; 36415; 80048; 85025; 85610; 85730; 93005; A4215; A4216; A4221; A4222; A4223 ×3; A4606; A4663; C1882; J0690 ×2; J2175 ×2; J2250 ×2; J3490 ×3; J7030; 99156; 99157

== ENCOUNTER → 2021-10-31 | Outpatient (CLI) | payer OTHER ==
[2021-10-31 12:42] LABS: BILIRUBIN,TOTAL 1.4 mg/dL (0.2-1.0); CREATININE 1.9 mg/dL (0.5-1.5); POTASSIUM 3.9 mmol/L (3.5-5.1); TOTAL PROTEIN, SERUM 6.6 g/dL (6.0-8.3)
== END | disposition home or self-care (01) ==
LOC: LAB 09:57
PROVIDERS: ATTEND Physician Assistant
DX: I25.10 Atherosclerotic heart disease of native coronary artery without angina pectoris (principal)
CPT/HCPCS: 36415; 80053; 83880